=== PATIENT | male | born 1975 | race Caucasian/White ===

== ENCOUNTER 2018-12-08 22:47 | Emergency (ER) | payer BC ==
[2018-12-08 23:13] VITALS: BP 134/89
[2018-12-09] MEDS ORDERED: FAMOTIDINE 20 MG TABLET PO ONE (00:39)
[2018-12-09] MEDS ORDERED: PREDNISONE 20 MG TABLET PO ONE (00:39)
--- NOTE | 2018-12-09 00:45 | ER Document Report ---
HPI - HPI Patient complains to provider of: allergic reaction Time Seen by Provider: 12/09/18 00:32 Pain Level: 2 Context: Patient is a 43-year-old male that comes to the emergency department for chief complaint of allergic reaction. He states he started itching in his left eye, along his left face, then his left eyelid started swelling. He took 50 mg of Benadryl, came to the emergency department. He states after he took the medications he is actually significantly improved, itching has resolved, eyelid swelling has significantly improved. He denies tongue swelling, lip swelling, itchiness or swelling of the throat, difficulty breathing, visual changes. He denies any other complaints. He states he was eating a new type of ice cream tonight, he cannot think of any other new exposures. Past medical history of hyperlipidemia, denies any medical history otherwise. - CONSTITUTIONAL Constitutional: DENIES: Fever, Chills - EENT EENT: REPORTS: Eye problems - L eyelid. DENIES: Sore Throat, Ear Pain - NEURO Neurology: DENIES: Headache, Weakness, Vision blurred, Dizzinesss / Vertigo - CARDIOVASCULAR Cardiovascular: DENIES: Chest pain - RESPIRATORY Respiratory: DENIES: Trouble Breathing, Coughing - GASTROINTESTINAL Gastrointestinal: DENIES: Abdominal Pain, Black / Bloody Stools - URINARY Urinary: DENIES: Dysuria, Urgency, Frequency - REPRODUCTIVE Reproductive: DENIES: : - MUSCULOSKELETAL Musculoskeletal: DENIES: Extremity pain Past Medical History - General Information source: Patient - Social History Smoking Status: Never Smoker Frequency of alcohol use: None Drug Abuse: None Lives with: Family Family History: Reviewed & Not Pertinent Patient has suicidal ideation: No Patient has homicidal ideation: No - Past Medical History Cardiac Medical History: Reports: Hx Hypercholesterolemia Renal/ Medical History: Denies: Hx Peritoneal Dialysis Musculoskeletal Medical History: Reports Hx Gout - Immunizations Hx Diphtheria, Pertussis, Tetanus Vaccination: Yes Vertical Provider Document - CONSTITUTIONAL General Appearance: WD/WN, No Apparent Distress, Obese - INFECTION CONTROL TRAVEL OUTSIDE OF THE [place] IN LAST 30 DAYS: No - HEENT HEENT: Atraumatic, Normocephalic. negative: Normal ENT Exam - There is puffiness to the left lower eyelid, upper eyelid unremarkable, mild puffiness just below this eyelid as well. Facial exam unremarkable otherwise. Normal oral pharyngeal exam, no uvular edema or airway compromise. Normal lips, tongue. ENT exam unremarkable otherwise. - NECK Neck: Normal Inspection - RESPIRATORY Respiratory: Breath Sounds Normal, No Respiratory Distress - CARDIOVASCULAR Cardiovascular: Regular Rate, Regular Rhythm - GI/ABDOMEN Gastrointestinal: Abdomen Soft, Abdomen Non-Tender - BACK Back: Normal Inspection - MUSCULOSKELETAL/EXTREMETIES Musculoskeletal/Extremeties: MAEW, FROM, Non-Tender - NEURO Level of Consciousness: Awake, Alert, Appropriate - DERM Integumentary: Warm, Dry, No Rash Course - Re-evaluation Re-evalutation: Patient has a puffy appearance of the left lower eyelid, however patient states this is not significantly improved from prior. The itching along his face has resolved. There is no rash, lips, tongue, oropharyngeal exam are normal, lungs clear. No other complaints. No visual changes or eye pain. No discharge. Examination does most strongly suggest allergic reaction which is improving. Discussed with patient. Patient will be medicated for allergic symptoms, take prescriptions at home, return if he worsens in any way. Patient also asks for a primary care referral which was provided. Patient states satisfaction and agreement with plan. - Vital Signs Vital signs: Temp Pulse Resp BP Pulse Ox 98.7 F 92 16 134/89 H 98 12/08/18 23:12 12/08/18 23:12 12/08/18 23:12 12/08/18 23:12 12/08/18 23:12 Discharge - Discharge Clinical Impression: Itching Allergic reaction Qualifiers: Encounter type: initial encounter Qualified Code(s): T78.40XA - Allergy, unspecified, initial encounter Swollen eyelid Qualifiers: Laterality: left Qualified Code(s): H02.846 - Edema of left eye, unspecified eyelid Condition: Stable Disposition: HOME, SELF-CARE Additional Instructions: Your evaluation is most consistent with an allergic reaction. Take the medications as prescribed. I recommend taking the cetirizine or the Benadryl for 1 week, these are interchangeable, take the Pepcid as prescribed for 1 week. While taking the prednisone avoid carbohydrates/sugar foods or this will elevate your blood sugars. Follow-up with primary care referral. Return immediately if you develop any worsening symptoms including swelling of the lips, tongue, throat, shortness of breath, developing rash or increased swelling of the face, or any other concerning symptoms. Prescriptions: Cetirizine HCl [Zyrtec 10 mg Tablet] 1 tab PO DAILY #30 tablet Famotidine [Pepcid 20 mg Tablet] 20 mg PO BID #14 tablet Prednisone [Deltasone 10 mg Tablet] 10 mg PO ASDIR PRN #21 tablet PRN Reason: Referrals: KATH WALL MD [ACTIVE STAFF] - Follow up as needed
== END 2018-12-09 00:47 | disposition home or self-care (01) ==
LOC: ER 22:47
DX: T78.40XA Allergy, unspecified, initial encounter (principal); L29.9 Pruritus, unspecified; H02.846 Edema of left eye, unspecified eyelid; X58.XXXA Exposure to other specified factors, initial encounter
CPT/HCPCS: 99283; J7512